=== PATIENT | female | born 1935 | race Caucasian/White ===

== ENCOUNTER → 2016-10-10 | Outpatient (CLI) | payer BC ==
[~2016-10-10] MED LIST: CALC-20 PO; CZR50 PO; HYDR12.55 PO; LEVO75TA PO; OXYC-57 PO
--- NOTE | 2016-10-10 13:16 | MAMMOGRAPHY REPORT ---
BILATERAL DIGITAL SCREENING MAMMOGRAM WITH CAD: 10/10/2016 CLINICAL HISTORY: Routine screening. Patient has no complaints. TECHNIQUE: Current study was also evaluated with a Computer Aided Detection (CAD) system. Bilatera l CC and MLO views were obtained. COMPARISON: Comparison is made to exams dated: 10/10/2015 mammogram, 10/06/2013 mammogram, 10/07/2014 jeniffer mogram, 10/05/2012 mammogram, 09/30/2011 mammogram, and 09/26/2010 mammogram - [facility]. BREAST COMPOSITION: The tissue of both breasts is almost entirely fatty. FINDINGS: No suspicious masses, calcifications, or areas of architectural distortion are noted in e ither breast. There has been no significant interval change compared to prior exams. Asymmetry seen within the right 12:00 breast is stable compared to prior exams. Bilateral benign appearing calcif ications are stable. IMPRESSION: ACR BI-RADS CATEGORY 2: BENIGN There is no mammographic evidence of malignancy. A 1 year screening mammogram is recommended. The p atient will receive written notification of the results. Approximately 10% of breast cancers are not detected with mammography. A negative mammographic repor t should not delay biopsy if a clinically suggestive mass is present. Syeda Nolan M.D. ah/:10/10/2016 10:46:59 Airline Hostess: Brittney THOMPSON(Daryl)(M), [facility] letter sent: Normal 1/2 BI-RADS Code: ACR BI-RADS Category 2: Benign
== END | disposition home or self-care (01) ==
LOC: C.MAMM 09:12
PROVIDERS: ATTEND Family Medicine
DX: Z12.31 Encounter for screening mammogram for malignant neoplasm of breast (principal)

== ENCOUNTER → 2017-06-09 | Outpatient (CLI) | payer BC ==
[2017-06-09 10:16] LABS: URINE APPEARANCE CLEAR (CLEAR); URINE BILIRUBIN NEG (NEG); URINE COLOR YELLOW; URINE NITRITE NEG (NEG); URINE PH 7.5 (4.5-7.5); URINE SPECIFIC GRAVITY 1.012 (1.000-1.030); UROBILINOGEN NEG (NEG)
[2017-06-09 10:23] LABS: MANUAL MICROSCOPIC REQUIRED? NO; REVIEW REQ? NO
[2017-06-09 10:24] LABS: BLOOD UREA NITROGEN 30 mg/dl (7-18); BUN/CREATININE RATIO 23.2 (10-20); CALCIUM 9.4 mg/dl (8.5-10.1); CARBON DIOXIDE 26 mmol/L (21-32); CHLORIDE 105 mmol/L (98-107); CREATININE 1.27 mg/dl (0.60-1.20); GLUCOSE 105 mg/dl (70-99); SODIUM 138 mmol/L (136-145)
[2017-06-09 10:32] LABS: CREATININE, URINE 35.4 mg/dl; URINE TOTAL PROTEIN < 5.0 mg/dl (0-11.9)
[2017-06-09 10:47] LABS: PHOSPHORUS 3.4 mg/dl (2.5-4.9)
== END | disposition home or self-care (01) ==
LOC: C.LAB 08:06
PROVIDERS: ATTEND Internal Medicine Nephrology
DX: E03.4 Atrophy of thyroid (acquired) (principal); N18.3 Chronic kidney disease, stage 3 (moderate); E55.9 Vitamin D deficiency, unspecified

== ENCOUNTER → 2017-10-13 | Outpatient (CLI) | payer BC ==
--- NOTE | 2017-10-14 15:13 | MAMMOGRAPHY REPORT ---
BILATERAL DIGITAL SCREENING MAMMOGRAM TOMOSYNTHESIS WITH CAD: 10/13/2017 CLINICAL HISTORY: Routine screening. TECHNIQUE: Breast tomosynthesis in addition to standard 2D mammography was performed. Current study was also evaluated with a Computer Aided Detection (CAD) system. COMPARISON: Comparison is made to exams dated: 10/10/2016 mammogram, 10/10/2015 mammogram, 10/07/2014 mamm ogram, 10/06/2013 mammogram, 10/05/2012 mammogram, and 09/30/2011 mammogram - [facility] . BREAST COMPOSITION: The tissue of both breasts is almost entirely fatty. FINDINGS: A linear scar marker overlies the left upper outer quadrant and there are numerous circular mole markers overlying the breasts. A few scattered punctate microcalcifications. Stable focal asy mmetry in the 12:00 posterior right breast. No suspicious mass, architectural distortion or cluster of microcalcifications is seen. IMPRESSION: ACR BI-RADS CATEGORY 1: NEGATIVE There is no mammographic evidence of malignancy. A 1 year screening mammogram is recommended. The pa tient will receive written notification of the results. Approximately 10% of breast cancers are not detected with mammography. A negative mammographic report should not delay biopsy if a clinically suggestive mass is present. Reyna Zapien M.D. ay/:10/13/2017 15:29:11 Supervisor Electronics Inspection: Dot THOMPSON(Daryl)(M), [facility] letter sent: Normal 1/2 BI-RADS Code: ACR BI-RADS Category 1: Negative
== END | disposition home or self-care (01) ==
LOC: C.MAMM 10:51
PROVIDERS: ATTEND Internal Medicine
DX: Z12.31 Encounter for screening mammogram for malignant neoplasm of breast (principal)

== ENCOUNTER → 2017-12-09 | Outpatient (CLI) | payer BC ==
[2017-12-09 12:35] LABS: BLOOD UREA NITROGEN 28 mg/dl (7-18); CALCIUM 8.9 mg/dl (8.5-10.1); CARBON DIOXIDE 27 mmol/L (21-32); CHOLESTEROL 167 mg/dl (0-200); CREATININE 1.22 mg/dl (0.60-1.20); GLUCOSE 94 mg/dl (70-99); SODIUM 136 mmol/L (136-145)
[2017-12-09 12:39] LABS: LDL CHOLESTEROL CALCULATED 87 mg/dl
== END | disposition home or self-care (01) ==
LOC: C.LAB 11:36
PROVIDERS: ATTEND Nurse Practitioner
DX: Z13.220 Encounter for screening for lipoid disorders (principal); N18.3 Chronic kidney disease, stage 3 (moderate)

== ENCOUNTER 2022-02-28 05:03 | Observation (INO) ==
--- NOTE | 2022-02-25 08:21 | Anesthesiology Consultation ---
Date of Service February 25, 2022 Assessment & Plan (1) Encounter for pre-operative examination: Plan - awaiting S PCP finalized pre-op clearance. Current addendum does reflect GFR increase and pending urine culture. - ER 02/16/22 [facility]: "...getting off of a stool when she lost her balance and fell onto her right ankle causing the injury just prior to arrival..." - COVID screening: Per bi lead on 02/19/2022: Travel screen negative, no known COVID-19 positive contacts or current COVID-19 related symptoms in past 2 weeks. Pt vaccinated. Surgeon arranging preop COVID testing, scheduled 02/26/2022. Awaiting results. Chart Review Chart Review: Pending: Refer to Additional Notes / Consult section and Patient NOT seen in Pre Admission Testing History Surgery Operation Date: 02/28/22 07:15 Proposed Procedures p Right Ankle Bimalleolar Open Reduction Internal Fixation - Bhanu Acosta MD Height/Weight Height: 5 ft 3 in Weight: 73.028 kg Allergies Allergy/AdvReac Type Severity Reaction Status Date / Time adhesive Allergy Unknown Verified 02/19/22 11:20 Medications Home Medications Medication Instructions Recorded Confirmed Last Taken CALCIUM CARBONATE-VITAMIN D 1 tab PO TID ##0 09/23/14 02/19/22 Unknown (CALCIUM 600 + D) hydrochlorothiazide 12.5 mg tablet 12.5 mg PO QAM 02/19/22 02/19/22 Unknown levothyroxine 75 mcg tablet 37.5 mcg PO QAM 02/19/22 02/19/22 Unknown losartan 50 mg tablet 50 mg PO BID 02/19/22 02/19/22 Unknown Past Medical History Medical History (Updated 02/25/22 @ 08:27 by Namrata Dobson PA-C) Anemia known d/t CKD per [facility] records; H&H 02/21/22: 06/02 Aortic stenosis mild, on 03/23/21 echo Hx of cataract bilat. 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 ankle, and removed hardware 6 mos. later Hx of breast biopsy Lt., benign Hx of cataract extraction bilat. Hx of colonoscopy Hx of total hysterectomy with removal of both tubes and ovaries Social History Smoking Status: Never smoker Do You Dip or Chew Tobacco: No Hx Alcohol Use: Yes Alcohol type: wine alcohol intake frequency: holidays/special occasions only Hx Substance Use: No substance use type: does not use Lab Results Anesthesia Preop Results Results Anesthesia Widget: WBC 6.28 K/ul (4.8-10.8) 02/21/22 Hgb 10.1 g/dl (12.0-16.0) L 02/21/22 Hct 30.9 % (34.1-44.9) L 02/21/22 Plt 240 K/uL (130-400) 02/21/22 Na 139 mmol/L (136-145) 02/21/22 K 3.7 mmol/L (3.5-5.1) 02/21/22 Cl 105 mmol/L (98-107) 02/21/22 CO2 25 mmol/L (21-32) 02/21/22 BUN 40 mg/dl (6-23) H 02/21/22 Creat 1.47 mg/dl (0.6-1.2) H 02/21/22 Glucose Level 123 mg/dl (70-99(Fasting)) H 02/21/22 Urine Color Yellow 02/21/22 Urine Appearance Cloudy (Clear) A 02/21/22 Urine pH 6.5 (4.5-7.5) 02/21/22 Urine Specific Warden 1.017 (1.000-1.030) 02/21/22 Urine Protein Trace (Negative) H 02/21/22 Urine Glucose (UA) Negative (Negative) 02/21/22 Urine Ketones Negative (Negative) 02/21/22 Urine Blood Negative (Negative) 02/21/22 Urine Nitrite Negative (Negative) 02/21/22 Urine Bilirubin Negative (Negative) 02/21/22 Urine Urobilinogen Negative (Negative) 02/21/22 Urine Leukocyte Esterase 3+ (Negative) H 02/21/22 Urine WBC (Auto) 10-30 /hpf (0-5) H 02/21/22 Urine RBC (Auto) 0-4 /hpf (0-4) 02/21/22 Urine Hyaline Casts (Auto) 1-5 /lpf (0-5) 02/21/22 Urine Epithelial Cells (Auto) >30 /lpf (0-5) H 02/21/22 Urine Bacteria (Auto) 1+ (Negative) H 02/21/22 Testing Electrocardiogram Date: 02/20/22 Sinus rhythm with premature supraventricular complexes, rate 77 bpm Echocardiogram Date: 03/23/21 EF 60-65% Class I diastolic dysfunction Mild valvular aortic stenosis
[2022-02-28] MEDS ORDERED: LR 15ML/HR IV SCH (06:00)
[2022-02-28] MEDS ORDERED: ceFAZolin 1000MG 1,000 MG/7.5 ML SYR IV SCH (06:00)
[2022-02-28] MEDS ORDERED: ROPIVACAINE 0.5% 5 MG/ML 30 ML VIAL ONE (06:17)
[2022-02-28] MEDS ORDERED: ATROPINE SULFATE 0.1 MG/ML 10ML SYR IV PRN (06:45)
[2022-02-28] MEDS ORDERED: ONDANSETRON INJ 2 MG/ML 2 ML VIAL IV PRN ×2 (06:45→11:12)
[2022-02-28] MEDS ORDERED: fentaNYL citrate 100 MCG/2 ML VIAL IV PRN (06:45)
[2022-02-28] MEDS ORDERED: ePHEDrine sulfate 50 MG/ML AMP IV PRN (06:45)
[2022-02-28] MEDS ORDERED: LIDOCAINE 2% 2 ML VIAL/AMP(20MG/ML) INFIL ONE ×2 (06:52)
[2022-02-28] MEDS ORDERED: fentaNYL citrate 100 MCG/2 ML VIAL ONE (06:57)
--- NOTE | 2022-02-28 07:00 | History & Physical Bridge Note ---
Date of Service February 28, 2022 History & Physical Bridge Note I have examined the patient, reviewed the History & Physical and in the interval since the performance of the History & Physical I have noted the following changes of clinical significance: no changes noted
[2022-02-28] MEDS ORDERED: BUPIVACAINE/EPINEPHRINE 0.25% 1:200,000 30 ML VIAL ONE (07:01)
[2022-02-28] MEDS ORDERED: LIDOCAINE 1%/EPINEPHRINE 1:100,000 50 ML VIAL ONE (07:01)
[2022-02-28] MEDS ORDERED: DEXAMETHASONE SOD INJ 4 MG/ML VIAL ONE ×2 (08:42)
[2022-02-28] MEDS ORDERED: ONDANSETRON INJ 2 MG/ML 2 ML VIAL ONE (08:53)
[2022-02-28] MEDS ORDERED: PROPOFOL IV EMULSION 10 MG/ML 20 ML VIAL IV ONE (09:14)
--- NOTE | 2022-02-28 09:31 | Fluoroscopy Report ---
FL ankle RT min 3V RTN CLINICAL HISTORY: Internal fixation of a right ankle fracture. COMPARISON STUDY: Right ankle 02/16/2022. FLUOROSCOPY TIME: 18 seconds. FINDINGS: 3 fluoroscopic spot images of the right ankle demonstrates a lateral cortical plate and scr ews transfixing the distal fibular fracture. The hardware appears intact. The alignment is near-anato sasha. IMPRESSION: Fluoroscopic assistance provided for internal fixation of the right distal fibular fractu re. ACT 112: Negative or not required by law. Electronically signed by: Darvin Rolon M.D. 02/28/2022 9:30 AM
--- NOTE | 2022-02-28 09:48 | Operative Report ---
Post Operative Report Pre & Post Diagnosis Operation Date: 02/28/22 07:15 Pre-Op Diagnosis: Displaced Trimalleolar Fracture of Right Lower Leg Post-Op Diagnosis: Displaced Trimalleolar Fracture of Right Lower Leg I identified the patient and participated in the time-out.: Yes Procedure Operation Date: 02/28/22 07:15 Actual Procedures p Open Reduction Internal Fixation of Right Lateral Malleolar (Right) - Bhanu Acosta MD Surgeon Bhanu Acosta M.D. Telemarketing Sales Representative Maddie Burton PA-C Estimated Blood Loss 5 Findings Consistent with Post-Op Diagnosis Specimens None Anesthesia Type General Regional Description of Procedure Patient was taken to the operating room, placed under general anesthesia, time out performed, prepped and draped in routine sterile fashion. She was given IV Ancef preoperatively. I was present during the entire case and assisted with positioning, tissue retraction, reduction of fracture, implantation of hardware, closure, splinting and dressings. Please see Dr. Acosta's operative report for further detail. Patient was awakened and taken to the recovery room in stable condition. I attest to the content of the Intraoperative Record and any orders documented therein. Any exceptions are noted below.
--- NOTE | 2022-02-28 09:55 | Operative Report ---
Post Operative Report Pre & Post Diagnosis Operation Date: 02/28/22 07:15 Pre-Op Diagnosis: Displaced Trimalleolar Fracture of Right Lower Leg Post-Op Diagnosis: Displaced Trimalleolar Fracture of Right Lower Leg I identified the patient and participated in the time-out.: Yes Procedure Operation Date: 02/28/22 07:15 Actual Procedures p Open Reduction Internal Fixation of Right Lateral Malleolar (Right) - Bhanu Acosta MD Surgeon Bhanu Acosta MD Datastage Consultant Maddie Burton PA-C no resident or fellow available Estimated Blood Loss 5 Findings Consistent with Post-Op Diagnosis Specimens None Anesthesia Type General Regional Complications none Disposition Accompanied Patient To Recovery: No Disposition: Recovery Room Indications And is 86. She had a fall resulting in a trimalleolar fracture of her right ankle. She has had a prior history of a medial malleolar injury many years ago and had surgery over there. There is some degenerative change cyst formation and comminution medially. Overall alignment is reasonable. The posterior fracture is minor avulsions. The main fracture is lateral. The goal today is to stabilize her lateral malleolus. Description of Procedure Informed consent obtained. Patient identified. She identified the operative site as the right ankle. I marked with my initials. A preoperative surgical timeout was performed and preop dose of IV antibiotics was given. She was taken to the operating room positioned supine on the OR table. A bump was placed under the right hip and a tourniquet was applied to the right thigh. The leg was prescribed prepped and draped in usual sterile fashion. DVT prophylaxis with mechanical devices intraoperatively. Postoperatively mechanical devices early mobility and Lovenox. The ankle had extensive bruising. There was mild swelling of the foot and ankle area however skin wrinkles were present and there was no blistering or breakdown. Fluoroscopic guidance was utilized about the procedure. Bony prominences were inspected and padded. The nonoperative leg was secured the table. The limb was exsanguinated with the Esmarch. Tourniquet inflated to 250 mmHg. A lateral incision was made of about 10 to 12 cm in length. This was made paralleling the shaft of the distal fibula. Blunt dissection was performed down to the subcutaneous tissues. Proximally I look for the superficial peroneal nerve but did not encounter it within the surgical field. Subperiosteal exposure of the distal fibula and fracture site was performed. There was a small comminuted piece of the proximal fragment anteriorly which was tied down to the end of the plate with a 2-0 FiberWire at the end of the case. This was about 1 cm long and was in situ held together by soft tissue attachments which were preserved. The main fracture was a long Anderson B oblique type fracture. It was opened up and cleaned of soft tissue and hematoma and then anatomically aligned with a bone reduction clamp. It was then fixated with a 3.5 mm bicortical lag screw. An 8 hole one third tubular locking plate from [employer] was selected. It was pre-bent to affixed to the lateral fibula. It was fixed proximally and distally with locking screws. Distally unicortical. Proximally bicortical. This gave excellent stability. The medial malleolus was anatomically aligned with the fixation of the lateral side and did not demonstrate any significant angulation or displacement. I think given the bone quality over there that operative intervention had some potential unnecessary risk. Posteriorly everything looks fine. I stressed the syndesmosis and it was intact. Tourniquet let down after 45 minutes of inflation. Meticulous hemostasis. Care was taken to protect the soft tissues at all times in terms of retracting and pressure. I went ahead and closed the periosteum over the entire length of the plate using 0 and 3-0 Vicryl. The skin was then closed with 4-0 Vicryl and 3-0 nylon horizontal mattress stitches. The leg was cleaned wet and dry sponges and a bulky soft sterile dressing was applied Xeroform 4 x 4's ABD soft wrap and a posterior splint with ankle in neutral. She was awakened from anesthesia without difficulty and taken to the recovery room in stable condition. There were no specimens or complications. Counts were correct. Bone quality overall was good on the lateral side. Blood loss was estimated to be 5 mL. Plan is to admit to the hospital. Postop IV antibiotics. Elevation icing DVT prophylaxis rehab and placement. At this time nonweightbearing for a pproximately 6 weeks. I attest to the content of the Intraoperative Record and any orders documented therein. Any exceptions are noted below.
--- NOTE | 2022-02-28 10:12 | Anesthesiology Progress Note ---
Date of Service February 28, 2022 Anesthesia Post Procedure Vital Signs Vital Signs: Temp Pulse Resp BP BP Pulse Ox O2 Del Method 02/28/22 10:05 85 17 154/87 H 94 Room Air 02/28/22 09:55 70 15 140/72 98 Oxymask 02/28/22 09:45 97.3 F L 79 15 125/72 97 Oxymask 02/28/22 05:59 98.2 F 82 18 186/88 H 99 Room Air O2 Flow Rate 02/28/22 10:05 02/28/22 09:55 4 02/28/22 09:45 4 02/28/22 05:59 Transfer of Care Handoff Completed per policy Notes Mental Status: alert / awake / arousable and participated in evaluation Patient Amnestic to Procedure: Yes Nausea / Vomiting: adequately controlled Pain: adequately controlled Airway Patency, RR, SpO2: stable & adequate BP & HR: stable & adequate Hydration State: stable & adequate Anesthetic Complications: no major complications apparent and Pt Satisfied with anesthetic care
[2022-02-28] MEDS ORDERED: METOCLOPRAMIDE HCL INJ 5 MG/ML 2 ML VIAL IV PRN (11:12)
[2022-02-28] MEDS ORDERED: MAGNESIUM HYDROXIDE SUSP 30 ML UDC PO PRN (11:12)
[2022-02-28] MEDS ORDERED: HYDROmorphone INJ 0.5 MG/0.5 ML SYR IV PRN (11:12)
[2022-02-28] MEDS ORDERED: bisacodyL 10 MG SUPP PR PRN (11:12)
[2022-02-28] MEDS ORDERED: traMADol HCL 50 MG TABLET PO PRN (11:12)
[2022-02-28] MEDS ORDERED: NALOXONE HCL 0.4 MG/1 ML VIAL/CARP IV PRN (11:12)
[2022-02-28] MEDS: ACETAMINOPHEN 500 MG TAB PO SCH ×2 (13:45→21:08)
[2022-02-28] MEDS: CALCIUM 600MG + VIT D 400 IU TAB PO SCH ×2 (13:45→21:07)
[2022-02-28] MEDS: SODIUM CHLORIDE 0.9% 1000ML 1,000 ML IV SCH ×2 (13:46→23:48)
--- NOTE | 2022-02-28 15:09 | Orthopedic Progress Note ---
Date of Service February 28, 2022 Assessment & Plan (1) Ankle fracture, right: Plan: S/p ORIF right ankle fracture today with Dr. Acosta Maintain NWB Right lower extremity Ice and elevate right lower extremity above your heart to relieve pain/swelling. Use walker to assist with ambulation. PT/OT to start tomorrow. Start Lovenox this evening for DVT prophylaxis. Also SCD's and teds on LLE. Keep splint on right leg at all times, keep it clean and dry. Allowed to wiggle toes and bend knee as tolerated. Dr. Acosta present for today's visit today. Case management for disposition needs, possibly may need post op Rehab vs SNF. Could possibly be discharged tomorrow if arrangements are made and pain well controlled. Patient understands and agrees with plan, will re-eval tomorrow. Admission and Anticipated Discharge Date Admission Date: February 28, 2022 Subjective Patient sitting up in bed, no complaints of pain in right ankle. Tolerated her lunch, denies nausea or vomiting. Physical Exam Musculoskeletal: Exam of right ankle: right lower extremity splint clean, dry and intact. Unable to move toes, but states she can feel them when I touch. Currently still blocked. Toes are warm, cap refill brisk. Dorsalis pedis pulse 1+. Elevated on 2 pillows. Results & Data ([facility]) Vital Signs (Past 12 Hours) Vital Signs Temp Pulse Resp BP BP Pulse Ox O2 Del Method 02/28/22 13:45 91 H 16 143/69 H 94 Room Air 02/28/22 12:45 87 18 150/89 H 96 Room Air 02/28/22 12:15 78 19 152/99 H 96 Room Air 02/28/22 11:45 69 16 144/69 H 94 Room Air 02/28/22 11:15 76 15 150/84 H 92 Room Air 02/28/22 11:00 81 16 153/80 H 91 Room Air 02/28/22 10:45 79 16 150/84 H 93 Room Air 02/28/22 10:30 80 18 149/83 H 93 Room Air 02/28/22 10:15 36.5 C 79 16 144/82 H 94 Room Air 02/28/22 10:05 85 17 154/87 H 94 Room Air 02/28/22 09:55 70 15 140/72 98 Oxymask 02/28/22 09:45 36.3 C L 79 15 125/72 97 Oxymask 02/28/22 05:59 36.8 C 82 18 186/88 H 99 Room Air O2 Flow Rate 02/28/22 13:45 02/28/22 12:45 02/28/22 12:15 02/28/22 11:45 02/28/22 11:15 02/28/22 11:00 02/28/22 10:45 02/28/22 10:30 02/28/22 10:15 02/28/22 10:05 02/28/22 09:55 4 02/28/22 09:45 4 02/28/22 05:59
[2022-02-28] MEDS: ceFAZolin 1000MG 1,000 MG/7.5 ML SYR IV SCH (17:29)
[2022-02-28] MEDS ORDERED: NON-FORMULARY MEDICATION (Vit C,E-Zn-Coppr-Lutein-Zeaxan [Preservision Areds-2] 250-90-40- PO SCH (21:00)
[2022-02-28] MEDS: DOCUSATE SODIUM 100 MG CAP PO SCH (21:06)
[2022-02-28] MEDS: SENNA 8.6 MG TAB PO SCH (21:06)
[2022-02-28] MEDS: ENOXAPARIN INJ 30 MG/0.3 ML SYR SQ SCH (21:06)
[2022-02-28] MEDS: LOSARTAN POTASSIUM 50 MG TAB PO SCH (21:07)
[2022-03-01] MEDS: ceFAZolin 1000MG 1,000 MG/7.5 ML SYR IV SCH (00:06)
[2022-03-01] MEDS: ACETAMINOPHEN 500 MG TAB PO SCH ×3 (05:57→20:58)
[2022-03-01] MEDS: LEVOTHYROXINE SODIUM 75 MCG TABLET PO SCH (07:49)
[2022-03-01] MEDS: ASPIRIN 81 MG ECTAB PO SCH (08:10)
[2022-03-01] MEDS: CALCIUM 600MG + VIT D 400 IU TAB PO SCH ×3 (08:10→20:58)
[2022-03-01] MEDS: ASCORBIC ACID 500 MG TAB PO SCH (08:10)
[2022-03-01] MEDS: hydroCHLOROthiazide 25 MG TAB PO SCH (08:10)
[2022-03-01] MEDS: MULTIVITAMIN TAB PO SCH (08:11)
[2022-03-01] MEDS: DOCUSATE SODIUM 100 MG CAP PO SCH ×2 (08:11→20:59)
[2022-03-01] MEDS: LOSARTAN POTASSIUM 50 MG TAB PO SCH ×2 (08:11→20:58)
[2022-03-01 10:39] LABS: Mean Corpuscular Hemoglobin 31.7 pg (25.0-34.0); Mean Corpuscular Hgb Conc 32.3 g/dL (32.0-36.0); Mean Corpuscular Volume 98.4 fL (80.0-100.0); Mean Platelet Volume 9.6 fL (9.4-12.3); Platelet Count 240 K/uL (130-400); RDW Coefficient of Variation 13.7 % (11.5-14.5); RDW Standard Deviation 49.5 fL (36.4-46.3); Red Blood Count 3.15 M/uL (3.93-5.22); White Blood Count 7.82 K/ul (4.8-10.8)
[2022-03-01 11:00] LABS: BUN Creatinine Ratio 27.7 (10-20); Calcium 8.9 mg/dl (8.5-10.1); Creatinine Clr Calc Pharmacy 30.4 ml/min; Est GFR (African American) 43.6 ml/min; Est GFR (Non-African American) 37.6 ml/min; Potassium 3.7 mmol/L (3.5-5.1)
[2022-03-01] MEDS: ENOXAPARIN INJ 30 MG/0.3 ML SYR SQ SCH ×2 (11:33→20:58)
--- NOTE | 2022-03-01 13:41 | Orthopedic Progress Note ---
Date of Service March 01, 2022 Assessment & Plan (1) Ankle fracture, right: Plan: POD 1 - S/p ORIF right ankle fracture today with Dr. Acosta Maintain NWB Right lower extremity Ice and elevate right lower extremity above your heart to relieve pain/swelling. Use walker to assist with ambulation. PT/OT to start tomorrow. Continue Lovenox for DVT prophylaxis. Also SCD's and teds on LLE. Keep splint on right leg at all times, keep it clean and dry. Allowed to wiggle toes and bend knee as tolerated. Dr. Acosta present for today's visit today. Home medications continued. Case management for disposition needs, possibly may need post op Rehab vs SNF. Awaiting placement and bed availability. Plan to keep here thru Friday. Awaiting insurance approval. Patient understands and agrees with plan, will continue to follow. Admission and Anticipated Discharge Date Admission Date: February 28, 2022 Subjective Patient out of bed in chair, pain well controlled, some pain on the outer aspect of her ankle, described as an ache, pain medication helps with pain. Tolerating a regular diet. Right foot elevated on pillows on a stand. Physical Exam Musculoskeletal: Exam of right ankle: splint and dressings, clean and dry. Toes move well. No distal edema, normal sensation. Dressings loosen slightly at top and bottom. Results & Data ([facility]) Vital Signs (Past 12 Hours) Vital Signs Temp Pulse Resp BP Pulse Ox O2 Del Method 03/01/22 10:39 36.6 C 72 18 151/73 H 97 Room Air 03/01/22 07:01 36.8 C 74 20 157/77 H 96 Room Air 03/01/22 03:47 36.5 C 82 20 137/75 96 Room Air Laboratory Results 03/01/22 03/01/22 Range/Units 10:12 10:12 WBC 7.82 (4.8-10.8) K/ul RBC 3.15 L (3.93-5.22) M/uL Hgb 10.0 L (12.0-16.0) g/dl Hct 31.0 L (34.1-44.9) % MCV 98.4 (80.0-100.0) fL MCH 31.7 (25.0-34.0) pg MCHC 32.3 (32.0-36.0) g/dL RDW Std Deviation 49.5 H (36.4-46.3) fL RDW Coeff of Chantell 13.7 (11.5-14.5) % Plt Count 240 (130-400) K/uL MPV 9.6 (9.4-12.3) fL Sodium 140 (136-145) mmol/L Potassium 3.7 (3.5-5.1) mmol/L Chloride 109 H (98-107) mmol/L Carbon Dioxide 25 (21-32) mmol/L Anion Gap 6 (3-11) BUN 36 H (6-23) mg/dl Creatinine 1.30 H (0.6-1.2) mg/dl Est Cr Clr Drug Dosing 30.4 ml/min Est GFR ( Amer) 43.6 ml/min Est GFR (Non-Af Amer) 37.6 ml/min BUN/Creatinine Ratio 27.7 H (10-20) Glucose 103 H (70-99(Fasting)) mg/dl Calcium 8.9 (8.5-10.1) mg/dl
[2022-03-01] MEDS: SENNA 8.6 MG TAB PO SCH (20:58)
[2022-03-02] MEDS: ACETAMINOPHEN 500 MG TAB PO SCH ×3 (05:46→21:21)
[2022-03-02] MEDS: LEVOTHYROXINE SODIUM 75 MCG TABLET PO SCH (07:23)
[2022-03-02] MEDS: ASPIRIN 81 MG ECTAB PO SCH (08:26)
[2022-03-02] MEDS: CALCIUM 600MG + VIT D 400 IU TAB PO SCH ×3 (08:26→20:43)
[2022-03-02] MEDS: ASCORBIC ACID 500 MG TAB PO SCH (08:26)
[2022-03-02] MEDS: MULTIVITAMIN TAB PO SCH (08:26)
[2022-03-02] MEDS: LOSARTAN POTASSIUM 50 MG TAB PO SCH ×2 (08:27→20:42)
[2022-03-02] MEDS: hydroCHLOROthiazide 25 MG TAB PO SCH (08:27)
[2022-03-02] MEDS: DOCUSATE SODIUM 100 MG CAP PO SCH ×2 (08:31→20:44)
--- NOTE | 2022-03-02 09:07 | Progress Notes ---
DATE OF SERVICE: 03/02/2022. Resting comfortably in bed. No problems are reported. She is afebrile. Vital signs are stable. Dr cason is clean, dry and intact. Foot is warm. Dorsalis pedis is not palpable. She has intact sens ation. Capillary refill less than 2 seconds. She can wiggle all of her toes. PLAN: To continue nonweightbearing, elevation, DVT prophylaxis. Change the dose to 40 mg subcutaneo us daily. Await placement. Job ID: [id number]
[2022-03-02] MEDS: ENOXAPARIN INJ 40 MG/0.4 ML SYR SQ SCH (09:49)
[2022-03-02] MEDS: SENNA 8.6 MG TAB PO SCH (20:44)
[2022-03-03] MEDS: ACETAMINOPHEN 500 MG TAB PO SCH ×3 (05:06→21:14)
[2022-03-03 05:54] LABS: Creatinine Clr Calc Pharmacy 31.8 ml/min; Est GFR (African American) 46.2 ml/min; Est GFR (Non-African American) 39.9 ml/min
[2022-03-03] MEDS: LEVOTHYROXINE SODIUM 75 MCG TABLET PO SCH (07:27)
[2022-03-03] MEDS: ASCORBIC ACID 500 MG TAB PO SCH (09:12)
[2022-03-03] MEDS: MULTIVITAMIN TAB PO SCH (09:12)
[2022-03-03] MEDS: hydroCHLOROthiazide 25 MG TAB PO SCH (09:12)
[2022-03-03] MEDS: ASPIRIN 81 MG ECTAB PO SCH (09:12)
[2022-03-03] MEDS: LOSARTAN POTASSIUM 50 MG TAB PO SCH ×2 (09:12→21:14)
[2022-03-03] MEDS: CALCIUM 600MG + VIT D 400 IU TAB PO SCH ×3 (09:13→21:14)
[2022-03-03] MEDS: DOCUSATE SODIUM 100 MG CAP PO SCH ×2 (09:14→21:15)
[2022-03-03] MEDS: ENOXAPARIN INJ 40 MG/0.4 ML SYR SQ SCH (09:16)
--- NOTE | 2022-03-03 12:15 | Progress Notes ---
DATE OF NOTE: 03/03/2022. Patient doing well. Stable. Plan on changing dressing tomorrow. Job ID: [id number]
[2022-03-03] MEDS: SENNA 8.6 MG TAB PO SCH (21:15)
[2022-03-04] MEDS: ACETAMINOPHEN 500 MG TAB PO SCH ×3 (05:59→21:24)
[2022-03-04] MEDS: LEVOTHYROXINE SODIUM 75 MCG TABLET PO SCH (06:00)
[2022-03-04] MEDS: LOSARTAN POTASSIUM 50 MG TAB PO SCH ×2 (08:30→21:25)
[2022-03-04] MEDS: CALCIUM 600MG + VIT D 400 IU TAB PO SCH ×3 (08:30→21:25)
[2022-03-04] MEDS: hydroCHLOROthiazide 25 MG TAB PO SCH (08:30)
[2022-03-04] MEDS: ENOXAPARIN INJ 40 MG/0.4 ML SYR SQ SCH (08:31)
[2022-03-04] MEDS: ASPIRIN 81 MG ECTAB PO SCH (08:31)
[2022-03-04] MEDS: MULTIVITAMIN TAB PO SCH (08:31)
[2022-03-04] MEDS: ASCORBIC ACID 500 MG TAB PO SCH (08:31)
[2022-03-04] MEDS: DOCUSATE SODIUM 100 MG CAP PO SCH ×2 (08:35→21:26)
--- NOTE | 2022-03-04 11:48 | Progress Notes ---
DATE OF SERVICE: 03/04/2022. No issues reported. Resting comfortably in bed. Afebrile, vital signs are stable. Blood pressure i s a little bit high. Dressing changed. Pedal pulses are not palpable. Swelling is mild. Skin wrin kles are present. There is no drainage. The wound looks great. There is no necrosis, erythema or d rainage. A new well-padded dressing is applied with an ABD on the heel. Abundant cast padding, and the splint with a new Carlos Eduardo wraps. Ankle in neutral. Calf nontender. Capillary refill less than 2 se conds on the toes. The foot is warm. She can wiggle the toes. At this time, we are awaiting placement. We will continue DVT prophylaxis with Lovenox. She is to e levate, ice, nonweightbearing. Continue PT and OT and will await placement via case management. Job ID: [id number]
[2022-03-04] MEDS: SENNA 8.6 MG TAB PO SCH (21:26)
[2022-03-05] MEDS: ACETAMINOPHEN 500 MG TAB PO SCH ×2 (05:42→13:40)
[2022-03-05] MEDS: LEVOTHYROXINE SODIUM 75 MCG TABLET PO SCH (05:42)
[2022-03-05] MEDS: hydroCHLOROthiazide 25 MG TAB PO SCH (08:33)
[2022-03-05] MEDS: LOSARTAN POTASSIUM 50 MG TAB PO SCH (08:34)
[2022-03-05] MEDS: MULTIVITAMIN TAB PO SCH (08:34)
[2022-03-05] MEDS: ENOXAPARIN INJ 40 MG/0.4 ML SYR SQ SCH (08:35)
[2022-03-05] MEDS: CALCIUM 600MG + VIT D 400 IU TAB PO SCH ×2 (08:35→13:41)
[2022-03-05] MEDS: ASPIRIN 81 MG ECTAB PO SCH (08:36)
[2022-03-05] MEDS: DOCUSATE SODIUM 100 MG CAP PO SCH (08:36)
[2022-03-05] MEDS: ASCORBIC ACID 500 MG TAB PO SCH (08:36)
--- NOTE | 2022-03-05 09:39 | Orthopedic Progress Note ---
Date of Service March 05, 2022 Assessment & Plan (1) Ankle fracture, right: Plan: POD 5- S/p ORIF right ankle fracture with Dr. Acosta Maintain NWB Right lower extremity Ice and elevate right lower extremity above your heart to relieve pain/swelling. Continue with tylenol for pain control. Use walker to assist with ambulation. PT/OT Continue Lovenox for DVT prophylaxis. Also SCD's and teds on LLE. She will be d/c on Lovenox 30mg BID for 2-4 weeks with weekly CBC starting Sunday 03/11. Written script has been provided for rehab. Obtaining CBC today prior to discharge. Most recent CBC on 03/01 with stable H/H Splint/dressing was changed 03/04. Keep splint on right leg at all times, keep it clean and dry. Allowed to wiggle toes and bend knee as tolerated. Pt was approved at [facility] and potentially will be discharged today if there is bed availability. She is ready for discharge today once she obtains CBC. Patient understands and agrees with plan, will continue to follow. Follow up with Dr Bhanu Acosta as scheduled for post op appointment. Admission and Anticipated Discharge Date Admission Date: March 04, 2022 Subjective Pt seen and examined bedside, POD 5 s/p right ankle ORIF. Pt reports she is doing well and her pain is well controlled. She rates her pain a 2/10 at most. She denies any calf pain or any numbness or tingling. She denies any CP, SOB, F/C. Pt is tolerating PO intake and voiding adaquate amounts. She had a BM yesterday. Possibly discharging today if bed is available at [facility]. Physical Exam Physical Exam: General: Pt laying in hospital bed AA&O, in NAD, calm and cooperative during exam. She is sitting up and eating breakfast. Lower Extremity: Short leg splint in tact and patient reports it is comfortable. It is fitting appropriately. She is able to wiggle all of her toes. Lower extremity noted to have good color and temperature with no signs of vascular or lymphatic insufficiency. Results & Data ([facility]) Vital Signs (Past 12 Hours) Vital Signs Temp Pulse Resp BP Pulse Ox O2 Del Method 03/05/22 07:25 36.5 C 79 18 169/77 H 94 Room Air 03/05/22 04:27 36.4 C L 81 18 169/78 H 95 Room Air 03/04/22 23:21 36.9 C 86 18 158/73 H 94 Room Air
[2022-03-05 10:03] LABS: Basophils # (auto) 0.07 K/uL (0-0.2); Basophils % (auto) 1.2 %; Eosinophils # (auto) 0.17 K/uL (0-0.50); Eosinophils % (auto) 2.9 %; Hematocrit (blood only) 33.2 % (34.1-44.9); Hemoglobin 10.8 g/dl (12.0-16.0); Immature Granulocytes # (auto) 0.03 K/uL (0.00-0.02); Immature Granulocytes % (auto) 0.5 %; Lymphocytes # (auto) 1.67 K/uL (1.2-3.4); Lymphocytes % (auto) 28.3 %; Mean Corpuscular Hgb Conc 32.5 g/dL (32.0-36.0); Mean Corpuscular Volume 98.5 fL (80.0-100.0); Mean Platelet Volume 9.6 fL (9.4-12.3); Monocytes # (auto) 0.44 K/uL (0.24-0.82); Monocytes % (auto) 7.4 %; Neutrophils # (auto) 3.53 K/uL (1.4-6.5); Neutrophils % (auto) 59.7 %; Platelet Count 315 K/uL (130-400); RDW Standard Deviation 50.3 fL (36.4-46.3); Red Blood Count 3.37 M/uL (3.93-5.22); White Blood Count 5.91 K/ul (4.8-10.8)
--- NOTE | 2022-03-05 10:48 | Discharge Summary ---
Date of Service March 05, 2022 Admission HPI Per Admitting Provider Patient presented to hospital 03/01 for right ankle open reduction internal fixation. Patient deemed medically and orthopedically stable for discharge on POD5. Vitals and labs are stable. X-rays show normal post operative changed. Pt reports they are doing well and pain is controlled. They are tolerating PO intake and voiding adequate amounts. Pt had BM today. Working well with PT/OT. Pt denies F/C, N/V/D, SOB, CP. Pt will be discharged to [facility] Principal Diagnosis s/p right ankle open reduction internal fixation Discharge Exam General: Pt laying in hospital bed AA&O, in NAD, calm and cooperative during exam. She is sitting up and eating breakfast. Lower Extremity: Short leg splint in tact and patient reports it is comfortable. It is fitting appropriately. She is able to wiggle all of her toes. Lower extremity noted to have good color and temperature with no signs of vascular or lymphatic insufficiency. Discharge Data Allergies Allergy/AdvReac Type Severity Reaction Status Date / Time adhesive Allergy Mild Verified 02/28/22 05:54 Procedures Performed Operation Date: 02/28/22 07:15 Actual Procedures p Open Reduction Internal Fixation of Right Lateral Malleolar (Right) - Bhanu Acosta MD Ordered Studies 02/28/22 05:00 US - OR guided needle placemen Routine 02/28/22 07:15 FL ankle RT min 3V RTN Routine Hospital Course (1) Status post open reduction with internal fixation (ORIF) of fracture of ankle: POD 5- S/p ORIF right ankle fracture with Dr. Acosta Patient deemed stable for discharge Maintain NWB Right lower extremity Ice and elevate right lower extremity above your heart to relieve pain/swelling. Continue with tylenol for pain control. Use walker to assist with ambulation. PT/OT She will be d/c on Lovenox 30mg BID for 2-4 weeks with weekly CBC starting Sunday 03/11. Written script has been provided for rehab. She will resume home meds Splint/dressing was changed 03/04. Keep splint on right leg at all times, keep it clean and dry. Allowed to wiggle toes and bend knee as tolerated. Pt was approved at [facility]. She is ready for discharge today to [facility] Follow up with Dr Bhanu Acosta as scheduled for post op appointment. Total Time Total Time Spent Total Time Spent (In Minutes): 45 minutes Discharge Plan Discharge Items Patient Disposition: Transfer Longterm Fac Reason For Visit: Displaced Bimalleolar Fracture of Right Lower Leg Discharge Diagnosis: Right ankle bimalleolar fracture Activity: Per Instructions section Weightbearing: Right non-weightbearing Weightbearing Comment: at all times; use walker or knee scooter or wheelchair assistance. Non-emergency contact: Surgeon Call non-emergency contact if: you have any medication questions, your symptoms worsen, your pain is not controlled, your temperature is above 101, your wound has increased redness and your wound has increased drainage Follow-up/Referrals: physical, therapy [Other] - 03/04/22 12:00 pm Ramona Oliveira DO [Primary Care Provider] - Bhanu Acosta MD [Surgeon] - 03/08/22 11:00 am Diet: Regular Addtl Attending Provider Instructions: DIET: * Resume previous diet. MEDICATIONS: * Please take your prescriptions as instructed at your pre-op appointment and/or see medication discharge instructions listed above. * Lovenox 30mg twice daily x 2-4 weeks after surgery. Written script provided. * Pain medication as prescribed * Tylenol 500mg 1-2 tabs every 8 hours as needed for pain. * If concerns develop, call your physician's office at . SPECIAL CARE INSTRUCTIONS: * Ice to right ankle as much as needed for pain/swelling. Allowed to put directly on your dressings, but keep splint and dressings dry. * Elevate right lower extremity above your heart to relieve pain/swelling. * Keep dressing clean, dry, intact. Keep splint on at all times. * Use walker to assist with ambulation. Also may use knee scooter or wheelchair. * Do not put any weight on your right leg at any time. * You may wiggle your toes or bend your knee as tolerated. * Your surgical extremity may be discolored due to prepping agents used on the skin. A bluish-green tint is a normal variant and should not cause alarm. * CBC weekly starting 03/12/22, while on Lovenox. You can get this done at your facility, by home health or at an outpatient lab. Written script provided. Call your doctor at [phone] if: * Temperature above 101 degrees * Pain not relieved by pain medicine ordered * There is increased drainage or redness from any incision * You have any unanswered questions, problems or concerns. FOLLOW UP VISIT: * You have an appointment with Dr Acosta on 03/08 @ 11:00am, please call the office at with any questions Pending Studies at Discharge: No Stand-Alone Forms: My [facility] Skilled Items Patient informed of condition?: Yes DNR: No Discharge Level of Care: Skilled Communicable Disease: No Discharge Prognosis: Stable Lines: None Urinary Catheter: No Medications and DC Order Prescriptions: New acetaminophen [Tylenol Extra Strength] 500 mg Tablet 1,000 mg PO Q8 Qty: 30 0RF enoxaparin [Lovenox] 30 mg/0.3 mL syringe 30 mg subcut Q12H 28 Days Qty: 16.8 0RF Continued CALCIUM CARBONATE-VITAMIN D (CALCIUM 600 + D) 1 TAB tablet 1 tab PO TID Qty: 0 losartan [Cozaar] 50 mg Tablet 50 mg PO BID levothyroxine 75 mcg Tablet 37.5 mcg PO QAM hydrochlorothiazide 12.5 mg Tablet 12.5 mg PO QAM PreserVision AREDS-2 250-90-40-1 mg Capsule 1 tab PO BID ascorbic acid (vitamin C) [Vitamin C] 500 mg Tablet 500 mg PO DAILY aspirin 81 mg Tablet 81 mg PO DAILY Discharge Orders: Discharge Order (Routine); Ordered 03/05/22 Ordered By: Patrica Pace Admission Data Admit Date/Time: 03/04/22 14:28 Attending Provider: Bhanu Acosta Admit Provider: Bhanu Acosta Primary Care Provider: Ramona Oliveira Other Providers: Honorio Partida ; Lorne Brady [facility]
[2022-03-05] MEDS ORDERED: COVID-19 VACC, TRIS(PFIZER)/PF 30 MCG/0.3 ML VIAL IM ONE (15:00)
== END 2022-03-05 14:30 ==
LOC: PACUINP 05:03 → ASU 05:03 → 3N 14:49